=== PATIENT | male | born 1955 ===

== ENCOUNTER 2021-04-23 12:19 | Inpatient (IN) | payer OTHER ==
[~2021-04-23 12:19] MED LIST: Iopamidol-370 76% 500 ML 1 ML ONE; Rocuronium Bromide 10 MG/ML (10ML VIAL) ONE; Succinylcholine 200 MG/10 ml SYRINGE FS ONE
[2021-04-23] MEDS ORDERED: Tranexamic Acid 1,000 MG/10 ML VIAL ONE (12:30)
[2021-04-23 12:31] LABS: #Eosinphils 0.1 thou/uL (0.0-0.7); #Lymphocytes 1.5 thou/uL (1.20-3.40); #Monocytes 0.6 thou/uL (0.11-0.59); #Neutrophils 4.9 thou/uL (1.40-6.50); %Basophils 0.4 % (0.0-1.0); %Eosinophils 1.2 % (0.0-10.0); %Lymphocytes 21.5 % (21.0-51.0); %Monocytes 7.9 % (0.0-10.0); Mean Corpuscular HGB CONC 33.8 g/dL (32.0-36.0); Mean Corpuscular Hemoglobin 33.5 pg (27.0-31.0); Mean Corpuscular Volume 99.2 fL (78.0-98.0); Platelet Count 156 thou/uL (130-400); RBC Distribution Width 12.6 % (11.5-14.5); Red Blood Cell (RBC) Count 4.78 mill/uL (4.70-6.10); White Blood Cell (WBC) Count 7.1 thou/uL (4.8-10.8)
[2021-04-23] MEDS ORDERED: Norepinephrine 4 MG/4 ML VIAL ONE ×2 (12:38→14:54)
[2021-04-23] MEDS ORDERED: Fentanyl 100 MCG/2 ML VIAL ONE ×2 (12:40→14:15)
[2021-04-23 12:45] LABS: ALT (SGPT) 83 U/L (8-55); AST (SGOT) 103 U/L (5-34); Albumin 3.6 g/dL (3.4-4.8); Alkaline Phosphatase 44 U/L (40-110); Anion Gap 13 mmol/L (10-20); BUN (Urea Nitrogen) 22 mg/dL (8.4-25.7); Bilirubin, Total 0.5 mg/dL (0.2-1.2); Calc. Creatinine Clearance 0 mL/min (70-130); Calcium 8.8 mg/dL (7.8-10.44); Carbon Dioxide 25 mmol/L (23-31); Chloride 104 mmol/L (98-107); Globulin 2.7 g/dL (2.4-3.5); Glucose 123 mg/dL (80-115); PTT 26.7 sec (22.9-36.1); Potassium 4.5 mmol/L (3.5-5.1); Protein, Total 6.3 g/dL (5.8-8.1); Prothrombin Time 13.4 sec (12.0-14.7); Sodium 137 mmol/L (136-145)
[2021-04-23] MEDS ORDERED: Fentanyl CADD 100 ML IV SCH (12:45)
[2021-04-23] MEDS ORDERED: Dexamethasone 10 MG/ML VIAL ONE (13:24)
[2021-04-23 13:28] LABS: Actual Bicarbonate (HCO3a) 22.4 mEq/L (22-28); Analyzer IN Cardio ER; Base Excess (BEa) -2.4 mEq/L (-2.0 to +3.0); CO2 Tension 38.9 mmHg (35.0-45.0); Calcium, Ionized (arterial) 1.05 mmol/L (1.12-1.30); Carboxyhemoglobin (COHb) 0.2 gm% (0.0-3.0); O2 Tension (PaO2), arterial 237.5 mmHg (> 80.0); Potassium - ABG Lab 5.04 mmol/L (3.70-5.30); pH, Arterial 7.38 (7.35-7.45)
[2021-04-23 13:29] LABS: ALV-art Gradient 70.375 mmHg (0-20); Puncture Site Arterial Line
[2021-04-23] MEDS ORDERED: Propofol 1,000 MG/100 ML VIAL IV ONE (13:40)
[2021-04-23] MEDS ORDERED: Dextrose 50% Abboject 50 ML SYRINGE SLOW IVP PRN (13:52)
[2021-04-23] MEDS ORDERED: Dextrose 5% in Water 1,000 ML IV PRN (13:52)
[2021-04-23] MEDS ORDERED: Ondansetron PF 4 MG/2 ML Vial IVP PRN (13:52)
[2021-04-23] MEDS ORDERED: hydrALAZINE 20 MG/ML VIAL SLOW IVP PRN (13:52)
[2021-04-23 14:29] LABS: Bacteria/HPF 2+ HPF (None Seen); Bilirubin Negative (Negative); Blood, Urine 3+ (Negative); Clarity Turbid (Clear); Glucose, Urine (Dipstick) Normal (Negative); Ketone, Urine Trace mg/dL (Negative); Leukocyte Negative Leu/uL (Negative); Nitrite Negative (Negative); Protein, Urine (Dipstick) 70 mg/dL (Neg-Trace); RBC/HPF Greater than 50 HPF (0-3); Specific Gravity, Urine 1.027 (1.002-1.036); Squamous Epithelial 0-3 HPF (0-3)
[2021-04-23 14:30] LABS: Amphetamine Not Detected (NotDetected); Barbiturates Screen Not Detected (NotDetected); Benzodiazepine Screen Detected (NotDetected); Cocaine Metabolite Screen Not Detected (NotDetected); Methadone Not Detected (NotDetected); Methamphetamine Not Detected (NotDetected); Opiate Screen Detected (NotDetected); Oxycodone Screen Not Detected (NotDetected); Phencyclidine (PCP) Not Detected (NotDetected); THC/Cannabinoid Screen Detected (NotDetected); Tricyclic Screen Not Detected (NotDetected)
[2021-04-23 14:58] LABS: SARS-CoV-2 NAA Rapid Test Not Detected (NotDetected)
[2021-04-23] MEDS ORDERED: DOPamine 400 MG/D5W 250 ML 250 ML ONE (16:22)
[2021-04-23] MEDS ORDERED: Lorazepam 2 MG/ML VIAL SLOW IVP PRN (16:34)
[2021-04-23] MEDS ORDERED: Fentanyl 100 MCG/2 ML VIAL SLOW IVP PRN (16:34)
[2021-04-23 16:58] LABS: Lactic Acid 1.4 mmol/L (0.5-2.2)
[2021-04-23] MEDS ORDERED: Morphine 2 MG/ML VIAL SLOW IVP PRN (17:00)
[2021-04-23] MEDS ORDERED: Fentanyl BOLUS 250 ML IVPB PRN (17:00)
[2021-04-23] MEDS ORDERED: DISCONTINUE PREVIOUS NARCOTIC PAIN MEDICATIONS AND BENZODIAZEPINES FS SCH (17:00)
[2021-04-23] MEDS ORDERED: Propofol BOLUS 1,000 MG/100 ML VIAL IV PRN (17:00)
[2021-04-23] MEDS: Sodium Chloride 0.9% 1,000 ML IV SCH ×2 (17:32→22:39)
[2021-04-23] MEDS ORDERED: Calcium Chloride 1 GM/10 ML Abboject SYRINGE IVP SCH (17:45)
[2021-04-23] MEDS: Lorazepam 2 MG/ML VIAL SLOW IVP PRN (18:19)
[2021-04-23] MEDS: Acetaminophen 325 MG TAB PER TUBE PRN (19:51)
[2021-04-23] MEDS: Propofol 1,000 MG/100 ML VIAL IV PRN (19:51)
[2021-04-23] MEDS: Dexamethasone 4 mg/ml Vial SLOW IVP SCH (19:54)
[2021-04-23] MEDS: Famotidine/PF 20 mg/2ml Vial SLOW IVP SCH (20:02)
[2021-04-23] MEDS: Silver Sulfadiazine 50 GM TUBE TOP SCH (20:02)
[2021-04-23] MEDS: Fentanyl CADD 100 ML IV SCH (22:39)
[2021-04-24] MEDS: Dexamethasone 4 mg/ml Vial SLOW IVP SCH ×4 (01:09→19:50)
[2021-04-24 05:33] LABS: Prothrombin Time 13.4 sec (12.0-14.7)
[2021-04-24 05:35] LABS: PTT 30.5 sec (22.9-36.1)
[2021-04-24 05:41] LABS: #Lymphocytes 0.6 thou/uL (1.20-3.40); #Neutrophils 10.8 thou/uL (1.40-6.50); %Lymphocytes 4.4 % (21.0-51.0); %Neutrophils 87.5 % (42.0-75.0); Hemoglobin 16.6 g/dL (14.0-18.0); Mean Corpuscular HGB CONC 33.1 g/dL (32.0-36.0); Mean Corpuscular Hemoglobin 31.6 pg (27.0-31.0); Mean Corpuscular Volume 95.6 fL (78.0-98.0); Mean Platelet Volume 7.2 fL (7.4-10.4); Platelet Count 167 thou/uL (130-400); RBC Distribution Width 13.2 % (11.5-14.5); Red Blood Cell (RBC) Count 5.26 mill/uL (4.70-6.10); White Blood Cell (WBC) Count 12.4 thou/uL (4.8-10.8)
[2021-04-24 05:42] LABS: Phosphorus 1.9 mg/dL (2.3-4.7)
[2021-04-24 05:49] LABS: Anion Gap 12 mmol/L (10-20); BUN (Urea Nitrogen) 13 mg/dL (8.4-25.7); Calc. Creatinine Clearance 101 mL/min (70-130); Calcium 9.1 mg/dL (7.8-10.44); Carbon Dioxide 23 mmol/L (23-31); Chloride 105 mmol/L (98-107); Glucose 186 mg/dL (80-115); Magnesium 1.7 mg/dL (1.6-2.6); Potassium 4.1 mmol/L (3.5-5.1); Sodium 136 mmol/L (136-145)
[2021-04-24] MEDS: Insulin Regular 300 UNITS/3 ML VIAL SC PRN ×2 (05:55→13:48)
[2021-04-24] MEDS: Sodium Chloride 0.9% 1,000 ML IV SCH ×3 (05:56→23:16)
[2021-04-24] MEDS ORDERED: Magnesium 2 GM/50 ML 2 GM in Premix Bag 1 BAG IVPB SCH (06:45)
[2021-04-24 07:26] LABS: Actual Bicarbonate (HCO3a) 24.1 mEq/L (22-28); CO2 Tension 37.9 mmHg (35.0-45.0); Calcium, Ionized (arterial) 1.18 mmol/L (1.12-1.30); Carboxyhemoglobin (COHb) 0.8 gm% (0.0-3.0); O2 Tension (PaO2), arterial 75.3 mmHg (> 80.0); Potassium - ABG Lab 4.07 mmol/L (3.70-5.30); pH, Arterial 7.42 (7.35-7.45)
[2021-04-24] MEDS: Lorazepam 2 MG/ML VIAL SLOW IVP PRN ×2 (07:41→21:49)
[2021-04-24] MEDS: DOPamine 400 MG/D5W 250 ML 250 ML IVPB SCH ×2 (07:43→13:46)
[2021-04-24 07:52] LABS: ALV-art Gradient 91.225 mmHg (0-20); Puncture Site Arterial Line
[2021-04-24] MEDS: Fentanyl CADD 100 ML IV SCH ×2 (08:14→16:12)
[2021-04-24] MEDS: Famotidine/PF 20 mg/2ml Vial SLOW IVP SCH ×2 (09:20→20:03)
[2021-04-24] MEDS: Silver Sulfadiazine 50 GM TUBE TOP SCH ×2 (09:21→20:03)
[2021-04-24] MEDS ORDERED: ceFAZolin Sodium/D5W 2 GM in Premix Bag 1 BAG IVPB SCH (10:00)
[2021-04-24] MEDS ORDERED: Midazolam HCl 2 mg/2 ml Vial ONE (10:34)
[2021-04-24] MEDS ORDERED: Rocuronium Bromide 10 MG/ML (10ML VIAL) ONE (11:10)
[2021-04-24] MEDS ORDERED: PROPOFOL 200 MG/20 ML VIAL ONE (11:10)
[2021-04-24] MEDS ORDERED: HYDROmorphone 2 MG/ML VIAL ONE (11:29)
[2021-04-24] MEDS: Acetaminophen 325 MG TAB PER TUBE PRN (16:54)
[2021-04-24] MEDS: Norepinephrine 8 MG in Dextrose 5% in Water 242 ML IVPB SCH (17:44)
[2021-04-24] MEDS: ceFAZolin Sodium/D5W 2 GM in Premix Bag 1 BAG IVPB SCH (19:49)
[2021-04-24] MEDS ORDERED: CEFAZOLIN 2 GM in Premix Bag 1 BAG IVPB SCH (20:00)
[2021-04-25] MEDS: Dexamethasone 4 mg/ml Vial SLOW IVP SCH ×4 (01:02→23:24)
[2021-04-25] MEDS: Lorazepam 2 MG/ML VIAL SLOW IVP PRN ×3 (01:02→16:31)
[2021-04-25] MEDS: ceFAZolin Sodium/D5W 2 GM in Premix Bag 1 BAG IVPB SCH (03:20)
[2021-04-25] MEDS: Fentanyl CADD 100 ML IV SCH ×2 (03:44→16:31)
[2021-04-25 03:49] LABS: #Lymphocytes 0.7 thou/uL (1.20-3.40); #Monocytes 1.6 thou/uL (0.11-0.59); #Neutrophils 10.5 thou/uL (1.40-6.50); %Basophils 0.1 % (0.0-1.0); %Eosinophils 0.1 % (0.0-10.0); %Lymphocytes 5.5 % (21.0-51.0); %Monocytes 12.5 % (0.0-10.0); %Neutrophils 81.9 % (42.0-75.0); Hemoglobin 15.3 g/dL (14.0-18.0); Mean Corpuscular HGB CONC 33.8 g/dL (32.0-36.0); Mean Corpuscular Volume 97.6 fL (78.0-98.0); Mean Platelet Volume 6.4 fL (7.4-10.4); Platelet Count 164 thou/uL (130-400); RBC Distribution Width 13.2 % (11.5-14.5); Red Blood Cell (RBC) Count 4.64 mill/uL (4.70-6.10); White Blood Cell (WBC) Count 12.8 thou/uL (4.8-10.8)
[2021-04-25 04:10] LABS: Anion Gap 13 mmol/L (10-20); BUN (Urea Nitrogen) 11 mg/dL (8.4-25.7); Calc. Creatinine Clearance 111 mL/min (70-130); Carbon Dioxide 25 mmol/L (23-31); Chloride 104 mmol/L (98-107); Glucose 156 mg/dL (80-115); Magnesium 1.9 mg/dL (1.6-2.6); Phosphorus 2.1 mg/dL (2.3-4.7); Potassium 4.3 mmol/L (3.5-5.1); Sodium 138 mmol/L (136-145)
[2021-04-25] MEDS: Sodium Chloride 0.9% 1,000 ML IV SCH ×3 (07:53→20:05)
[2021-04-25] MEDS: Famotidine/PF 20 mg/2ml Vial SLOW IVP SCH ×2 (08:43→21:16)
[2021-04-25] MEDS: Silver Sulfadiazine 50 GM TUBE TOP SCH ×2 (08:43→21:17)
[2021-04-25] MEDS: Norepinephrine 8 MG in Dextrose 5% in Water 242 ML IVPB SCH (08:44)
[2021-04-25] MEDS: Propofol 1,000 MG/100 ML VIAL IV PRN (16:25)
[2021-04-25] MEDS ORDERED: Hydrocortisone Sod Succ/PF 100 mg/2 ml Vial IVP SCH ×2 (16:45→22:00)
[2021-04-26] MEDS: Lorazepam 2 MG/ML VIAL SLOW IVP PRN ×2 (02:41→19:29)
[2021-04-26 03:45] LABS: #Lymphocytes 0.7 thou/uL (1.20-3.40); #Monocytes 1.3 thou/uL (0.11-0.59); %Basophils 0.1 % (0.0-1.0); %Eosinophils 0.1 % (0.0-10.0); %Lymphocytes 6.3 % (21.0-51.0); %Monocytes 11.5 % (0.0-10.0); Hemoglobin 12.9 g/dL (14.0-18.0); Mean Corpuscular HGB CONC 33.4 g/dL (32.0-36.0); Mean Corpuscular Volume 98.8 fL (78.0-98.0); Mean Platelet Volume 6.6 fL (7.4-10.4); Platelet Count 135 thou/uL (130-400); RBC Distribution Width 13.1 % (11.5-14.5); Red Blood Cell (RBC) Count 3.91 mill/uL (4.70-6.10); White Blood Cell (WBC) Count 10.9 thou/uL (4.8-10.8)
[2021-04-26 04:06] LABS: Anion Gap 8 mmol/L (10-20); BUN (Urea Nitrogen) 16 mg/dL (8.4-25.7); Calc. Creatinine Clearance 112 mL/min (70-130); Calcium 7.5 mg/dL (7.8-10.44); Carbon Dioxide 28 mmol/L (23-31); Chloride 107 mmol/L (98-107); Glucose 118 mg/dL (80-115); Magnesium 1.9 mg/dL (1.6-2.6); Phosphorus 2.4 mg/dL (2.3-4.7); Potassium 4.6 mmol/L (3.5-5.1); Sodium 138 mmol/L (136-145)
[2021-04-26] MEDS: Sodium Chloride 0.9% 1,000 ML IV SCH ×2 (08:38→23:39)
[2021-04-26] MEDS ORDERED: Aspirin 300 MG Suppository PR SCH (09:00)
[2021-04-26] MEDS: Famotidine 20 MG TAB PER TUBE SCH ×2 (09:19→20:16)
[2021-04-26] MEDS: Dexamethasone 4 mg/ml Vial SLOW IVP SCH ×2 (09:19→20:16)
[2021-04-26] MEDS: Silver Sulfadiazine 50 GM TUBE TOP SCH ×2 (09:20→20:34)
[2021-04-26] MEDS: Fentanyl CADD 100 ML IV SCH (10:07)
[2021-04-26] MEDS: DOPamine 400 MG/D5W 250 ML 250 ML IVPB SCH (10:48)
[2021-04-26] MEDS ORDERED: Escitalopram Oxalate 20 mg Tablet PO SCH (12:00)
[2021-04-26] MEDS: Acetaminophen 325 MG TAB PER TUBE PRN (20:16)
[2021-04-26] MEDS: Insulin Regular 300 UNITS/3 ML VIAL SC PRN (23:15)
[2021-04-27] MEDS: Sodium Chloride 0.9% 1,000 ML IV SCH ×3 (01:54→14:19)
[2021-04-27] MEDS: Fentanyl CADD 100 ML IV SCH ×2 (05:15→22:50)
[2021-04-27] MEDS: Insulin Regular 300 UNITS/3 ML VIAL SC PRN (05:15)
[2021-04-27] MEDS: Lorazepam 2 MG/ML VIAL SLOW IVP PRN (07:06)
[2021-04-27] MEDS: Dexamethasone 4 mg/ml Vial SLOW IVP SCH ×2 (08:17→20:54)
[2021-04-27] MEDS: Aspirin 325 MG TAB PER TUBE SCH (08:17)
[2021-04-27] MEDS: Escitalopram Oxalate 20 mg Tablet PO SCH (08:17)
[2021-04-27] MEDS: Famotidine 20 MG TAB PER TUBE SCH ×2 (08:17→20:55)
[2021-04-27] MEDS: Silver Sulfadiazine 50 GM TUBE TOP SCH ×2 (08:18→20:55)
[2021-04-27] MEDS ORDERED: Vecuronium 10 MG VIAL ONE (11:26)
[2021-04-27] MEDS ORDERED: Vecuronium 10 MG VIAL IV SCH ×2 (11:30→11:40)
[2021-04-27] MEDS ORDERED: PROPOFOL 20 ML ONE (11:53)
[2021-04-27] MEDS ORDERED: Haloperidol Lactate 5 MG/ML VIAL SLOW IVP PRN (11:55)
[2021-04-27 12:19] LABS: #Lymphocytes 0.6 thou/uL (1.20-3.40); #Monocytes 0.7 thou/uL (0.11-0.59); #Neutrophils 6.5 thou/uL (1.40-6.50); %Eosinophils 0.1 % (0.0-10.0); %Lymphocytes 7.2 % (21.0-51.0); %Monocytes 9.5 % (0.0-10.0); %Neutrophils 83.2 % (42.0-75.0); Hemoglobin 10.5 g/dL (14.0-18.0); Mean Corpuscular HGB CONC 33.5 g/dL (32.0-36.0); Mean Corpuscular Hemoglobin 33.5 pg (27.0-31.0); Mean Corpuscular Volume 99.9 fL (78.0-98.0); Mean Platelet Volume 7.1 fL (7.4-10.4); Platelet Count 123 thou/uL (130-400); Red Blood Cell (RBC) Count 3.13 mill/uL (4.70-6.10); White Blood Cell (WBC) Count 7.8 thou/uL (4.8-10.8)
[2021-04-27 13:04] LABS: Anion Gap 9 mmol/L (10-20); BUN (Urea Nitrogen) 21 mg/dL (8.4-25.7); Calc. Creatinine Clearance 169 mL/min (70-130); Calcium 6.3 mg/dL (7.8-10.44); Carbon Dioxide 20 mmol/L (23-31); Chloride 114 mmol/L (98-107); Glucose 133 mg/dL (80-115); Magnesium 1.8 mg/dL (1.6-2.6); Phosphorus 1.4 mg/dL (2.3-4.7); Potassium 3.5 mmol/L (3.5-5.1); Sodium 139 mmol/L (136-145)
[2021-04-27] MEDS ORDERED: Magnesium Sulfate 3 GM in Sodium Chloride 0.9% 100 ML IV SCH (13:15)
[2021-04-27] MEDS ORDERED: Potassium Phosphate 30 MMOL, Magnesium Sulfate 3 GM in Sodium Chloride 0.9% 250 ML IVPB SCH (14:00)
[2021-04-27] MEDS ORDERED: carBAMazepine 20 MG/ML ORAL SUSP PO SCH (15:30)
[2021-04-27] MEDS: carBAMazepine 200 MG/10 ML UDCUP PO SCH ×2 (18:07→18:08)
[2021-04-27] MEDS: carBAMazepine 20 MG/ML ORAL SUSP PO SCH (20:56)
[2021-04-28 04:29] LABS: #Lymphocytes 1.1 thou/uL (1.20-3.40); %Eosinophils 0.1 % (0.0-10.0); %Lymphocytes 13.2 % (21.0-51.0); %Monocytes 12.5 % (0.0-10.0); %Neutrophils 74.2 % (42.0-75.0); Hemoglobin 11.2 g/dL (14.0-18.0); Mean Corpuscular Volume 99.8 fL (78.0-98.0); Platelet Count 139 thou/uL (130-400); Red Blood Cell (RBC) Count 3.51 mill/uL (4.70-6.10); White Blood Cell (WBC) Count 8.1 thou/uL (4.8-10.8)
[2021-04-28 04:55] LABS: Anion Gap 8 mmol/L (10-20); BUN (Urea Nitrogen) 25 mg/dL (8.4-25.7); Calc. Creatinine Clearance 143 mL/min (70-130); Carbon Dioxide 26 mmol/L (23-31); Chloride 109 mmol/L (98-107); Glucose 126 mg/dL (80-115); Magnesium 2.4 mg/dL (1.6-2.6); Potassium 4.3 mmol/L (3.5-5.1); Sodium 139 mmol/L (136-145)
[2021-04-28] MEDS: Sodium Chloride 0.9% 1,000 ML IV SCH (04:59)
[2021-04-28] MEDS: Lorazepam 2 MG/ML VIAL SLOW IVP PRN (07:25)
[2021-04-28] MEDS ORDERED: Dexamethasone 4 mg/ml Vial SLOW IVP SCH (09:00)
[2021-04-28] MEDS: Propofol 1,000 MG/100 ML VIAL IV PRN (09:14)
[2021-04-28] MEDS: Dexamethasone 4 mg/ml Vial SLOW IVP SCH (09:14)
[2021-04-28] MEDS: carBAMazepine 20 MG/ML ORAL SUSP PO SCH ×3 (09:14→20:09)
[2021-04-28] MEDS: Aspirin 325 MG TAB PER TUBE SCH (09:14)
[2021-04-28] MEDS: Enoxaparin Sodium 40 MG/0.4 ML SYRINGE SC SCH (09:15)
[2021-04-28] MEDS: Thiamine 100 MG TAB PER TUBE SCH (09:15)
[2021-04-28] MEDS: Folic Acid 1 MG TAB PER TUBE SCH (09:15)
[2021-04-28] MEDS: Escitalopram Oxalate 20 mg Tablet PO SCH (09:15)
[2021-04-28] MEDS: Famotidine 20 MG TAB PER TUBE SCH ×2 (09:15→20:07)
[2021-04-28] MEDS: Silver Sulfadiazine 50 GM TUBE TOP SCH ×2 (09:16→20:09)
[2021-04-28] MEDS: Fentanyl CADD 100 ML IV SCH (17:39)
[2021-04-28] MEDS: Acetaminophen 325 MG TAB PER TUBE PRN (20:08)
[2021-04-29] MEDS: Sodium Chloride 0.9% 1,000 ML IV SCH ×3 (01:30→18:19)
[2021-04-29] MEDS: Propofol 1,000 MG/100 ML VIAL IV PRN (05:10)
[2021-04-29] MEDS: Metoclopramide HCl 10 MG/2 ML VIAL IVP SCH ×3 (05:11→21:32)
[2021-04-29 08:14] LABS: #Eosinphils 0.1 thou/uL (0.0-0.7); #Monocytes 1.3 thou/uL (0.11-0.59); #Neutrophils 6.9 thou/uL (1.40-6.50); %Basophils 0.3 % (0.0-1.0); %Eosinophils 0.6 % (0.0-10.0); %Lymphocytes 10.3 % (21.0-51.0); %Monocytes 14.4 % (0.0-10.0); %Neutrophils 74.4 % (42.0-75.0); Hemoglobin 10.9 g/dL (14.0-18.0); Mean Corpuscular HGB CONC 32.4 g/dL (32.0-36.0); Mean Corpuscular Hemoglobin 32.7 pg (27.0-31.0); Mean Platelet Volume 7.3 fL (7.4-10.4); Platelet Count 157 thou/uL (130-400); Red Blood Cell (RBC) Count 3.34 mill/uL (4.70-6.10); White Blood Cell (WBC) Count 9.2 thou/uL (4.8-10.8)
[2021-04-29 08:34] LABS: Anion Gap 10 mmol/L (10-20); BUN (Urea Nitrogen) 28 mg/dL (8.4-25.7); Calc. Creatinine Clearance 132 mL/min (70-130); Calcium 7.9 mg/dL (7.8-10.44); Carbon Dioxide 26 mmol/L (23-31); Chloride 108 mmol/L (98-107); Glucose 122 mg/dL (80-115); Magnesium 2.2 mg/dL (1.6-2.6); Phosphorus 2.3 mg/dL (2.3-4.7); Potassium 4.1 mmol/L (3.5-5.1); Sodium 140 mmol/L (136-145)
[2021-04-29] MEDS: Fentanyl CADD 100 ML IV SCH ×2 (08:42→22:51)
[2021-04-29] MEDS ORDERED: Dexamethasone 4 mg/ml Vial SLOW IVP SCH (09:00)
[2021-04-29] MEDS: Enoxaparin Sodium 40 MG/0.4 ML SYRINGE SC SCH (09:53)
[2021-04-29] MEDS: Aspirin 325 MG TAB PER TUBE SCH (09:53)
[2021-04-29] MEDS: Thiamine 100 MG TAB PER TUBE SCH (09:53)
[2021-04-29] MEDS: carBAMazepine 20 MG/ML ORAL SUSP PO SCH ×3 (09:54→20:21)
[2021-04-29] MEDS: Escitalopram Oxalate 20 mg Tablet PO SCH (09:54)
[2021-04-29] MEDS: Famotidine 20 MG TAB PER TUBE SCH ×2 (09:54→20:20)
[2021-04-29] MEDS: Folic Acid 1 MG TAB PER TUBE SCH (09:54)
[2021-04-29] MEDS: Silver Sulfadiazine 50 GM TUBE TOP SCH ×2 (09:55→20:20)
[2021-04-29] MEDS: Acetaminophen 325 MG TAB PER TUBE PRN (20:19)
[2021-04-30 04:10] LABS: #Eosinphils 0.1 thou/uL (0.0-0.7); #Lymphocytes 0.9 thou/uL (1.20-3.40); #Monocytes 1.3 thou/uL (0.11-0.59); #Neutrophils 6.4 thou/uL (1.40-6.50); %Basophils 0.3 % (0.0-1.0); %Eosinophils 1.2 % (0.0-10.0); %Lymphocytes 10.5 % (21.0-51.0); %Monocytes 14.7 % (0.0-10.0); %Neutrophils 73.3 % (42.0-75.0); Hemoglobin 10.9 g/dL (14.0-18.0); Mean Corpuscular HGB CONC 32.8 g/dL (32.0-36.0); Mean Corpuscular Hemoglobin 33.3 pg (27.0-31.0); Mean Platelet Volume 7.3 fL (7.4-10.4); Platelet Count 199 thou/uL (130-400); RBC Distribution Width 12.9 % (11.5-14.5); Red Blood Cell (RBC) Count 3.27 mill/uL (4.70-6.10); White Blood Cell (WBC) Count 8.8 thou/uL (4.8-10.8)
[2021-04-30 04:34] LABS: Anion Gap 11 mmol/L (10-20); BUN (Urea Nitrogen) 28 mg/dL (8.4-25.7); Calc. Creatinine Clearance 131 mL/min (70-130); Calcium 8.3 mg/dL (7.8-10.44); Carbon Dioxide 27 mmol/L (23-31); Chloride 108 mmol/L (98-107); Glucose 119 mg/dL (80-115); Magnesium 2.3 mg/dL (1.6-2.6); Phosphorus 2.7 mg/dL (2.3-4.7); Potassium 4.2 mmol/L (3.5-5.1); Sodium 142 mmol/L (136-145)
[2021-04-30] MEDS: Sodium Chloride 0.9% 1,000 ML IV SCH ×3 (04:54→23:07)
[2021-04-30] MEDS: Metoclopramide HCl 10 MG/2 ML VIAL IVP SCH ×3 (05:35→21:07)
[2021-04-30] MEDS: Propofol 1,000 MG/100 ML VIAL IV PRN ×3 (05:35→21:09)
[2021-04-30] MEDS: Escitalopram Oxalate 20 mg Tablet PO SCH (08:36)
[2021-04-30] MEDS: Famotidine 20 MG TAB PER TUBE SCH ×2 (08:36→20:03)
[2021-04-30] MEDS: Enoxaparin Sodium 40 MG/0.4 ML SYRINGE SC SCH (08:36)
[2021-04-30] MEDS: Folic Acid 1 MG TAB PER TUBE SCH (08:36)
[2021-04-30] MEDS: Aspirin 325 MG TAB PER TUBE SCH (08:39)
[2021-04-30] MEDS: Thiamine 100 MG TAB PER TUBE SCH (08:39)
[2021-04-30] MEDS: Silver Sulfadiazine 50 GM TUBE TOP SCH ×2 (08:40→20:03)
[2021-04-30] MEDS: carBAMazepine 20 MG/ML ORAL SUSP PO SCH ×3 (08:52→20:03)
[2021-04-30] MEDS ORDERED: Escitalopram Oxalate 20 mg Tablet PO SCH (09:00)
[2021-04-30] MEDS: Fentanyl CADD 100 ML IV SCH ×2 (10:53→23:30)
[2021-04-30] MEDS: Acetaminophen 325 MG TAB PER TUBE PRN (20:03)
[2021-05-01] MEDS: Propofol 1,000 MG/100 ML VIAL IV PRN ×3 (04:36→18:47)
[2021-05-01] MEDS: Acetaminophen 325 MG TAB PER TUBE PRN ×3 (04:40→21:04)
[2021-05-01 05:28] LABS: #Eosinphils 0.1 thou/uL (0.0-0.7); #Monocytes 1.3 thou/uL (0.11-0.59); #Neutrophils 7.2 thou/uL (1.40-6.50); %Basophils 0.2 % (0.0-1.0); %Eosinophils 1.1 % (0.0-10.0); %Lymphocytes 10.2 % (21.0-51.0); %Monocytes 13.3 % (0.0-10.0); %Neutrophils 75.2 % (42.0-75.0); Hemoglobin 10.6 g/dL (14.0-18.0); Mean Corpuscular HGB CONC 33.2 g/dL (32.0-36.0); Mean Corpuscular Hemoglobin 33.3 pg (27.0-31.0); Mean Platelet Volume 7.1 fL (7.4-10.4); Platelet Count 256 thou/uL (130-400); RBC Distribution Width 12.8 % (11.5-14.5); Red Blood Cell (RBC) Count 3.19 mill/uL (4.70-6.10); White Blood Cell (WBC) Count 9.6 thou/uL (4.8-10.8)
[2021-05-01 05:58] LABS: Anion Gap 12 mmol/L (10-20); BUN (Urea Nitrogen) 26 mg/dL (8.4-25.7); Calc. Creatinine Clearance 141 mL/min (70-130); Calcium 8.1 mg/dL (7.8-10.44); Carbon Dioxide 26 mmol/L (23-31); Chloride 108 mmol/L (98-107); Glucose 107 mg/dL (80-115); Phosphorus 2.7 mg/dL (2.3-4.7); Potassium 4.3 mmol/L (3.5-5.1); Sodium 142 mmol/L (136-145)
[2021-05-01] MEDS: Metoclopramide HCl 10 MG/2 ML VIAL IVP SCH ×3 (06:23→21:04)
[2021-05-01] MEDS: Folic Acid 1 MG TAB PER TUBE SCH (08:28)
[2021-05-01] MEDS: Escitalopram Oxalate 20 mg Tablet PO SCH (08:28)
[2021-05-01] MEDS: Thiamine 100 MG TAB PER TUBE SCH (08:28)
[2021-05-01] MEDS: Aspirin 325 MG TAB PER TUBE SCH (08:28)
[2021-05-01] MEDS: Famotidine 20 MG TAB PER TUBE SCH ×2 (08:28→20:56)
[2021-05-01] MEDS: Enoxaparin Sodium 40 MG/0.4 ML SYRINGE SC SCH (08:29)
[2021-05-01] MEDS: carBAMazepine 20 MG/ML ORAL SUSP PO SCH ×3 (08:30→20:57)
[2021-05-01 08:37] LABS: SARS-CoV-2 PCR by NAA Not Detected (NotDetected)
[2021-05-01] MEDS: Silver Sulfadiazine 50 GM TUBE TOP SCH ×2 (09:00→20:56)
[2021-05-01] MEDS: Fentanyl CADD 100 ML IV SCH (13:54)
[2021-05-01] MEDS: cefTRIAXone\\ROCEPHIN 1 GM in Sodium Chloride 0.9% 100 ML IVPB SCH (19:50)
[2021-05-01] MEDS: Sodium Chloride 0.9% 1,000 ML IV SCH (19:52)
[2021-05-01] MEDS ORDERED: Vancomycin 1 GM in Premix Bag 1 BAG IVPB SCH (21:00)
[2021-05-01 22:00] LABS: Bacteria/HPF 3+ HPF (None Seen); Bilirubin Negative (Negative); Blood, Urine 3+ (Negative); Clarity Turbid (Clear); Glucose, Urine (Dipstick) Normal (Negative); Ketone, Urine Negative (Negative); Leukocyte 500 Leu/uL (Negative); Nitrite 2+ (Negative); Protein, Urine (Dipstick) 50 mg/dL (Neg-Trace); RBC/HPF Greater than 50 HPF (0-3); Renal Epithelial 0-3 HPF (None Seen); Squamous Epithelial None Seen HPF (0-3); Urobilinogen 3 mg/dL (Less than 2); WBC/HPF Greater than 50 HPF (0-3); pH, Urine 5.5 (5.0-9.0)
[2021-05-01 22:09] LABS: Urine Culture Reflex Yes Yes
[2021-05-02] MEDS: Propofol 1,000 MG/100 ML VIAL IV PRN ×3 (01:25→14:52)
[2021-05-02 03:58] LABS: #Eosinphils 0.1 thou/uL (0.0-0.7); #Lymphocytes 0.8 thou/uL (1.20-3.40); #Monocytes 1.1 thou/uL (0.11-0.59); #Neutrophils 12.1 thou/uL (1.40-6.50); %Basophils 0.2 % (0.0-1.0); %Eosinophils 0.5 % (0.0-10.0); %Lymphocytes 5.7 % (21.0-51.0); %Monocytes 7.9 % (0.0-10.0); %Neutrophils 85.7 % (42.0-75.0); Hemoglobin 10.7 g/dL (14.0-18.0); Mean Corpuscular HGB CONC 32.9 g/dL (32.0-36.0); Mean Corpuscular Hemoglobin 32.9 pg (27.0-31.0); Mean Corpuscular Volume 99.9 fL (78.0-98.0); Mean Platelet Volume 6.4 fL (7.4-10.4); Platelet Count 278 thou/uL (130-400); RBC Distribution Width 12.8 % (11.5-14.5); Red Blood Cell (RBC) Count 3.25 mill/uL (4.70-6.10); White Blood Cell (WBC) Count 14.1 thou/uL (4.8-10.8)
[2021-05-02 04:23] LABS: Anion Gap 9 mmol/L (10-20); BUN (Urea Nitrogen) 25 mg/dL (8.4-25.7); Calc. Creatinine Clearance 133 mL/min (70-130); Calcium 8.3 mg/dL (7.8-10.44); Carbon Dioxide 28 mmol/L (23-31); Chloride 107 mmol/L (98-107); Glucose 114 mg/dL (80-115); Magnesium 2.1 mg/dL (1.6-2.6); Phosphorus 3.5 mg/dL (2.3-4.7); Potassium 4.4 mmol/L (3.5-5.1); Sodium 140 mmol/L (136-145)
[2021-05-02] MEDS: Acetaminophen 325 MG TAB PER TUBE PRN ×2 (05:19→17:36)
[2021-05-02] MEDS: Metoclopramide HCl 10 MG/2 ML VIAL IVP SCH ×3 (05:19→21:47)
[2021-05-02] MEDS: Sodium Chloride 0.9% 1,000 ML IV SCH ×2 (07:30→21:48)
[2021-05-02] MEDS: Fentanyl CADD 100 ML IV SCH (07:50)
[2021-05-02] MEDS: Enoxaparin Sodium 40 MG/0.4 ML SYRINGE SC SCH (08:55)
[2021-05-02] MEDS: Aspirin 325 MG TAB PER TUBE SCH (08:55)
[2021-05-02] MEDS: Famotidine 20 MG TAB PER TUBE SCH ×2 (08:56→21:47)
[2021-05-02] MEDS: Folic Acid 1 MG TAB PER TUBE SCH (08:56)
[2021-05-02] MEDS: Escitalopram Oxalate 20 mg Tablet PO SCH (08:56)
[2021-05-02] MEDS: Senokot S 8.6-50 MG TAB PO SCH ×2 (08:56→21:47)
[2021-05-02] MEDS: Polyethylene Glycol 3350 17 GM Packet PO SCH (08:56)
[2021-05-02] MEDS: Thiamine 100 MG TAB PER TUBE SCH (08:57)
[2021-05-02] MEDS: carBAMazepine 20 MG/ML ORAL SUSP PO SCH ×3 (09:01→21:47)
[2021-05-02] MEDS: Silver Sulfadiazine 50 GM TUBE TOP SCH ×2 (09:01→21:48)
[2021-05-02] MEDS: VANCOMYCIN 1.75 GM/350 ML BAG 1.75 GM in Premix Bag 1 BAG IVPB SCH ×2 (09:35→22:14)
[2021-05-02 15:51] LABS: Vancomycin, Peak 15.2 ug/mL (20.0-40.0)
[2021-05-02] MEDS ORDERED: Rocuronium Bromide 10 MG/ML (10ML VIAL) ONE (19:22)
[2021-05-02] MEDS ORDERED: PROPOFOL 200 MG/20 ML VIAL ONE (19:22)
[2021-05-02] MEDS ORDERED: Bupivacaine 0.25% 10 ML VIAL ONE (19:26)
[2021-05-02] MEDS ORDERED: Lidocaine 1% w/Epinephrine 1:100K 20 ML VIAL ONE (19:26)
[2021-05-02] MEDS ORDERED: Bupivacaine PF 0.5% 30 ML VIAL ONE (19:26)
[2021-05-02] MEDS: cefTRIAXone\\ROCEPHIN 1 GM in Sodium Chloride 0.9% 100 ML IVPB SCH (19:30)
[2021-05-02 21:53] LABS: Vancomycin, Trough 9.3 ug/mL
[2021-05-03] MEDS: Fentanyl CADD 100 ML IV SCH (00:46)
[2021-05-03] MEDS: Propofol 1,000 MG/100 ML VIAL IV PRN (01:41)
[2021-05-03] MEDS: Acetaminophen 325 MG TAB PER TUBE PRN (01:41)
[2021-05-03 03:52] LABS: #Eosinphils 0.2 thou/uL (0.0-0.7); #Lymphocytes 0.8 thou/uL (1.20-3.40); %Basophils 0.1 % (0.0-1.0); %Eosinophils 1.2 % (0.0-10.0); %Monocytes 7.1 % (0.0-10.0); %Neutrophils 85.7 % (42.0-75.0); Hemoglobin 9.7 g/dL (14.0-18.0); Mean Corpuscular HGB CONC 33.9 g/dL (32.0-36.0); Mean Corpuscular Hemoglobin 33.9 pg (27.0-31.0); Mean Corpuscular Volume 99.9 fL (78.0-98.0); Mean Platelet Volume 6.6 fL (7.4-10.4); Platelet Count 281 thou/uL (130-400); RBC Distribution Width 12.8 % (11.5-14.5); Red Blood Cell (RBC) Count 2.86 mill/uL (4.70-6.10)
[2021-05-03 04:08] LABS: Phosphorus 3.3 mg/dL (2.3-4.7)
[2021-05-03 04:10] LABS: Anion Gap 11 mmol/L (10-20); BUN (Urea Nitrogen) 28 mg/dL (8.4-25.7); Calc. Creatinine Clearance 141 mL/min (70-130); Calcium 7.9 mg/dL (7.8-10.44); Carbon Dioxide 25 mmol/L (23-31); Chloride 108 mmol/L (98-107); Glucose 111 mg/dL (80-115); Magnesium 2.1 mg/dL (1.6-2.6); Potassium 4.2 mmol/L (3.5-5.1); Sodium 140 mmol/L (136-145)
[2021-05-03] MEDS: Metoclopramide HCl 10 MG/2 ML VIAL IVP SCH ×3 (06:40→22:12)
[2021-05-03 08:08] LABS: Actual Bicarbonate (HCO3a) 27.1 mEq/L (22-28); Base Excess (BEa) 2.4 mEq/L (-2.0 to +3.0); CO2 Tension 42.6 mmHg (35.0-45.0); Calcium, Ionized (arterial) 1.08 mmol/L (1.12-1.30); Hemoglobin (Hb) 10.3 g/dL (14.0-18.0); O2 Tension (PaO2), arterial 73.4 mmHg (> 80.0); Potassium - ABG Lab 4.05 mmol/L (3.70-5.30); pH, Arterial 7.42 (7.35-7.45)
[2021-05-03 08:15] LABS: Puncture Site RRA
[2021-05-03] MEDS: Thiamine 100 MG TAB PER TUBE SCH (08:42)
[2021-05-03] MEDS: carBAMazepine 20 MG/ML ORAL SUSP PO SCH ×3 (08:42→20:32)
[2021-05-03] MEDS: VANCOMYCIN 1.75 GM/350 ML BAG 1.75 GM in Premix Bag 1 BAG IVPB SCH ×2 (08:42→20:49)
[2021-05-03] MEDS: Polyethylene Glycol 3350 17 GM Packet PO SCH (08:42)
[2021-05-03] MEDS: Aspirin 325 MG TAB PER TUBE SCH (08:42)
[2021-05-03] MEDS: Enoxaparin Sodium 40 MG/0.4 ML SYRINGE SC SCH (08:42)
[2021-05-03] MEDS: Senokot S 8.6-50 MG TAB PO SCH ×2 (08:43→20:27)
[2021-05-03] MEDS: Folic Acid 1 MG TAB PER TUBE SCH (08:43)
[2021-05-03] MEDS: Bisacodyl 10 MG SUPP PR SCH (08:43)
[2021-05-03] MEDS: Famotidine 20 MG TAB PER TUBE SCH ×2 (08:43→20:31)
[2021-05-03] MEDS: Escitalopram Oxalate 20 mg Tablet PO SCH (08:43)
[2021-05-03] MEDS: Silver Sulfadiazine 50 GM TUBE TOP SCH ×2 (08:44→20:32)
[2021-05-03] MEDS ORDERED: Cyclobenzaprine 10 MG TAB PO PRN (10:22)
[2021-05-03] MEDS ORDERED: Acetaminophen/Codeine 30-300mg Tablet PO PRN ×2 (10:22)
[2021-05-03] MEDS ORDERED: Morphine 4 MG/ML VIAL SLOW IVP PRN (10:24)
[2021-05-03] MEDS ORDERED: Artificial Tear Sol 15 ML BOT EA EYE PRN (10:24)
[2021-05-03] MEDS ORDERED: Calcium Chloride 13.6 MEQ in Sodium Chloride 0.9% 100 ML IVPB SCH (11:00)
[2021-05-03 11:22] VITALS: BMI 32.8
[2021-05-03] MEDS: Sodium Chloride 0.9% 1,000 ML IV SCH (11:31)
[2021-05-03] MEDS: Acetaminophen 325 MG TAB PER TUBE SCH ×3 (11:31→22:12)
[2021-05-03] MEDS: Gabapentin 300 MG CAP PO SCH ×2 (14:33→20:31)
[2021-05-03] MEDS: cefTRIAXone\\ROCEPHIN 1 GM in Sodium Chloride 0.9% 100 ML IVPB SCH (18:35)
[2021-05-03 20:37] LABS: Vancomycin, Trough 13.6 ug/mL
[2021-05-03 23:31] LABS: SARS-CoV-2 PCR by NAA Not Detected (NotDetected)
[2021-05-04] MEDS: Lorazepam 2 MG/ML VIAL SLOW IVP PRN (02:27)
[2021-05-04 04:38] LABS: #Eosinphils 0.1 thou/uL (0.0-0.7); #Lymphocytes 0.8 thou/uL (1.20-3.40); #Monocytes 1.4 thou/uL (0.11-0.59); #Neutrophils 10.9 thou/uL (1.40-6.50); %Basophils 0.2 % (0.0-1.0); %Eosinophils 0.9 % (0.0-10.0); %Lymphocytes 6.2 % (21.0-51.0); %Monocytes 10.4 % (0.0-10.0); %Neutrophils 82.3 % (42.0-75.0); Hemoglobin 10.3 g/dL (14.0-18.0); Mean Corpuscular HGB CONC 33.4 g/dL (32.0-36.0); Mean Corpuscular Hemoglobin 33.3 pg (27.0-31.0); Mean Corpuscular Volume 99.6 fL (78.0-98.0); Mean Platelet Volume 6.6 fL (7.4-10.4); Platelet Count 320 thou/uL (130-400); RBC Distribution Width 12.7 % (11.5-14.5); Red Blood Cell (RBC) Count 3.09 mill/uL (4.70-6.10); White Blood Cell (WBC) Count 13.3 thou/uL (4.8-10.8)
[2021-05-04 05:06] LABS: Anion Gap 12 mmol/L (10-20); BUN (Urea Nitrogen) 21 mg/dL (8.4-25.7); Calc. Creatinine Clearance 153 mL/min (70-130); Calcium 8.4 mg/dL (7.8-10.44); Carbon Dioxide 25 mmol/L (23-31); Chloride 108 mmol/L (98-107); Glucose 124 mg/dL (80-115); Magnesium 2.1 mg/dL (1.6-2.6); Phosphorus 2.3 mg/dL (2.3-4.7); Sodium 141 mmol/L (136-145)
[2021-05-04] MEDS: Acetaminophen 325 MG TAB PER TUBE SCH ×2 (06:08→11:14)
[2021-05-04] MEDS: Metoclopramide HCl 10 MG/2 ML VIAL IVP SCH (06:08)
[2021-05-04] MEDS ORDERED: Lorazepam 2 MG/ML VIAL SLOW IVP PRN (06:24)
[2021-05-04] MEDS ORDERED: Amoxicillin/Potassium Clav 875 MG TAB PER TUBE SCH (09:00)
[2021-05-04] MEDS: Escitalopram Oxalate 20 mg Tablet PO SCH (09:26)
[2021-05-04] MEDS: Folic Acid 1 MG TAB PER TUBE SCH (09:26)
[2021-05-04] MEDS: Famotidine 20 MG TAB PER TUBE SCH (09:27)
[2021-05-04] MEDS: Gabapentin 300 MG CAP PO SCH (09:27)
[2021-05-04] MEDS: Aspirin 325 MG TAB PER TUBE SCH (09:27)
[2021-05-04] MEDS: Polyethylene Glycol 3350 17 GM Packet PO SCH (09:28)
[2021-05-04] MEDS: Bisacodyl 10 MG SUPP PR SCH (09:28)
[2021-05-04] MEDS: Senokot S 8.6-50 MG TAB PO SCH (09:28)
[2021-05-04] MEDS: Thiamine 100 MG TAB PER TUBE SCH (09:29)
[2021-05-04] MEDS: Silver Sulfadiazine 50 GM TUBE TOP SCH (09:29)
[2021-05-04] MEDS: Enoxaparin Sodium 40 MG/0.4 ML SYRINGE SC SCH (09:37)
[2021-05-04] MEDS: carBAMazepine 20 MG/ML ORAL SUSP PO SCH (09:37)
[2021-05-04 11:16] VITALS: TEMP 98.8
[2021-05-04 11:28] VITALS: BP 131/69
== END 2021-05-04 11:45 | DRG 3 ==
LOC: ERS 12:19 → CCU 13:52
PROVIDERS: ADMIT Specialist; ATTEND Specialist
PROC: 5A1955Z Respiratory Ventilation, Greater than 96 Consecutive Hours (ICD-10-PCS; principal; 2021-04-23)
PROC: 02HV33Z Insertion of Infusion Device into Superior Vena Cava, Percutaneous Approach (ICD-10-PCS; 2021-04-23)
PROC: 03HY32Z Insertion of Monitoring Device into Upper Artery, Percutaneous Approach (ICD-10-PCS; 2021-04-23)
PROC: 3E033XZ Introduction of Vasopressor into Peripheral Vein, Percutaneous Approach (ICD-10-PCS; 2021-04-23)
PROC: 30233L1 Transfusion of Nonautologous Fresh Plasma into Peripheral Vein, Percutaneous Approach (ICD-10-PCS; 2021-04-23)
PROC: 30233N1 Transfusion of Nonautologous Red Blood Cells into Peripheral Vein, Percutaneous Approach (ICD-10-PCS; 2021-04-23)
PROC: 0RG2070 Fusion of 2 or more Cervical Vertebral Joints with Autologous Tissue Substitute, Anterior Approach, Anterior Column, Open Approach (ICD-10-PCS; 2021-04-24)
PROC: 0RB30ZZ Excision of Cervical Vertebral Disc, Open Approach (ICD-10-PCS; 2021-04-24)
PROC: 3E043XZ Introduction of Vasopressor into Central Vein, Percutaneous Approach (ICD-10-PCS; 2021-04-24)
PROC: 0B110F4 Bypass Trachea to Cutaneous with Tracheostomy Device, Open Approach (ICD-10-PCS; 2021-05-02)
PROC: 0DH63UZ Insertion of Feeding Device into Stomach, Percutaneous Approach (ICD-10-PCS; 2021-05-02)
DX: S14.151A Other incomplete lesion at C1 level of cervical spinal cord, initial encounter (principal); S06.6X0A Traumatic subarachnoid hemorrhage without loss of consciousness, initial encounter; I77.74 Dissection of vertebral artery; R57.8 Other shock; J96.00 Acute respiratory failure, unspecified whether with hypoxia or hypercapnia; R53.2 Functional quadriplegia; S06.5X0A Traumatic subdural hemorrhage without loss of consciousness, initial encounter; S22.029A Unspecified fracture of second thoracic vertebra, initial encounter for closed fracture; S22.049A Unspecified fracture of fourth thoracic vertebra, initial encounter for closed fracture; S22.039A Unspecified fracture of third thoracic vertebra, initial encounter for closed fracture; S22.019A Unspecified fracture of first thoracic vertebra, initial encounter for closed fracture; S22.20XA Unspecified fracture of sternum, initial encounter for closed fracture; S22.43XA Multiple fractures of ribs, bilateral, initial encounter for closed fracture; E27.40 Unspecified adrenocortical insufficiency; J93.82 Other air leak; J98.11 Atelectasis; J95.851 Ventilator associated pneumonia; E87.2 Acidosis; E46 Unspecified protein-calorie malnutrition; R78.81 Bacteremia; Z99.11 Dependence on respirator [ventilator] status; N39.0 Urinary tract infection, site not specified; S12.500A Unspecified displaced fracture of sixth cervical vertebra, initial encounter for closed fracture; Z66 Do not resuscitate; Z20.822 Contact with and (suspected) exposure to COVID-19; S12.600A Unspecified displaced fracture of seventh cervical vertebra, initial encounter for closed fracture; S42.002A Fracture of unspecified part of left clavicle, initial encounter for closed fracture; Z96.643 Presence of artificial hip joint, bilateral; S00.81XA Abrasion of other part of head, initial encounter; S05.11XA Contusion of eyeball and orbital tissues, right eye, initial encounter; T21.22XA Burn of second degree of abdominal wall, initial encounter; T31.0 Burns involving less than 10% of body surface; E83.39 Other disorders of phosphorus metabolism; E87.8 Other disorders of electrolyte and fluid balance, not elsewhere classified; F60.9 Personality disorder, unspecified; E83.42 Hypomagnesemia; R13.12 Dysphagia, oropharyngeal phase; S12.400A Unspecified displaced fracture of fifth cervical vertebra, initial encounter for closed fracture; S12.000A Unspecified displaced fracture of first cervical vertebra, initial encounter for closed fracture; S12.200A Unspecified displaced fracture of third cervical vertebra, initial encounter for closed fracture; S12.300A Unspecified displaced fracture of fourth cervical vertebra, initial encounter for closed fracture; M48.02 Spinal stenosis, cervical region; V29.9XXA Motorcycle rider (driver) (passenger) injured in unspecified traffic accident, initial encounter; Z78.1 Physical restraint status; Z68.33 Body mass index [BMI] 33.0-33.9, adult
CPT/HCPCS: 31500; 36415; 36416; 36430; 36556; 36600; 36620; 70450; 70486; 70498; 70551; 71045; 71260; 72125; 72141; 72170; 74177; 76000; 80048; 80053; 80202; 80306; 80307; 81001; 81003; 81015; 82040; 82533; 82805; 83605; 83735; 84100; 84145; 85025; 85610; 85730; 86850; 86900; 86901; 87040; 87077; 87086; 87149; 87186; 93005; 93010; 93970; 94002; 94003; 94150; 96365; 96366; 96368; 96374; 96375; 96376; 99292; C1713; C1776; G0390; J0360; J0696; J1100; J1170; J1265; J1630; J1650; J1720; J1815; J2060; J2250; J2405; J2704; J2765; J3010; J3370; J3475; J3490; J7030; J7050; J7070; P9016; P9048; Q9967; S0020; S0028; U0002; U0003; U0005